=== PATIENT | female | born 2000 | race Caucasian/White ===

== ENCOUNTER 2024-11-22 15:19 | Emergency (ER) | payer SELFPAY ==
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
[2024-11-22 16:03] LABS: Sqamous Epithelial <5 /HPF (None Seen); Urine Culture Reflex Order REFLEXED; Urine Microscopic Reflex YN ORDER UMIC
--- NOTE | 2024-11-22 16:35 | RAD REPORT ---
EXAM: Transvaginal OB HISTORY: ABD PAIN COMPARISON: None TECHNIQUE: Multiple grayscale and color Doppler images were obtained in a transvaginal pelvic ultraso und. Spectral analysis of the Doppler waveforms of the ovaries were performed. FINDINGS: UTERUS: There is an intrauterine gestational sac. This contains a yolk sac and pole. [place]-rump length: 1.8 cm which estimates gestational age at 8 week 2 day. SABRINA: 07/02/2025. A heart rate is detected at 175 bpm. No evidence of subchorionic hemorrhage. No free fluid is seen in the pelvis. RIGHT OVARY: Normal flow without focal mass. LEFT OVARY: Not visualized, possibly obscured by bowel gas. IMPRESSION: Single live IUP with positive heart tones measuring 8 week 2 day.
[2024-11-22] MEDS ORDERED: ACETAMINOPHEN 325 MG TABLET ONE (16:50)
--- NOTE | 2024-11-22 17:16 | EDPHYS ---
Physician Documentation [facility] Name: Yani Grover Age: 24 yrs Sex: Female : 2000 Arrival Date: 11/22/2024 Time: 15:19 Bed 19 Private MD: ED Physician Javi Newsome HPI: 11/22 15:45 This 24 yrs old Female presents to ER via Ambulatory with complaints of Abdominal Pain, cp Abdominal Cramping, Vaginal Discomfort. 15:45 The patient presents with abdominal pain. cp 15:45 Associated signs and symptoms: Pertinent positives: positive and cp approximately 9 weeks . does not currently have an OB, Pertinent negatives: vaginal bleeding. 15:45 Patient reports she was diagnosed with uti about 3 weeks ago and took about 6 days of cp prescribed Keflex antibiotic. Historical: - Allergies: 15:37 No Known Allergies; hb - Immunization history:: Adult Immunizations up to date. - Infectious Disease History:: Denies. - Social history:: Smoking status: Patient denies any tobacco usage or history of. ROS: 15:50 Eyes: Negative for injury, pain, redness, and discharge, cp 15:50 Constitutional: Negative for body aches, chills, fever, 15:50 ENT: Negative for drainage from ear(s), ear pain, sore throat, difficulty swallowing, difficulty handling secretions, 15:50 Respiratory: Negative for cough, shortness of breath, wheezing, 15:50 Back: Negative for pain at rest, pain with movement, 15:50 : Positive for vaginal pain, Negative for urinary symptoms, vaginal bleeding, vaginal discharge, 15:50 All other systems are negative, 15:50 Abdomen/GI: Positive for abdominal pain, nausea, abdominal cramps, of the lower cp abdomen, Negative for vomiting, diarrhea, constipation, Exam: 15:55 Constitutional: The patient appears in no acute distress, alert, awake, comfortable, cp non-toxic, well developed, well nourished, 15:55 Head/Face: Normocephalic, atraumatic. cp 15:55 Eyes: Periorbital structures: appear normal, Conjunctiva: normal, no exudate, no injection, Sclera: no appreciated abnormality, Lids and lashes: appear normal, bilaterally, 15:55 ENT: External ear(s): are unremarkable, Nose: is normal, Mouth: Lips: moist, Oral mucosa: moist, Posterior pharynx: Airway: no evidence of obstruction, patent, 15:55 Chest/axilla: Inspection: normal, 15:55 Cardiovascular: Rate: normal, Rhythm: regular, 15:55 Respiratory: the patient does not display signs of respiratory distress, Respirations: normal, no use of accessory muscles, no retractions, labored breathing, is not present, Breath sounds: are clear throughout, no decreased breath sounds, no stridor, no wheezing, 15:55 Abdomen/GI: Inspection: abdomen appears normal, Bowel sounds: active, all quadrants, Palpation: soft, in all quadrants, mild abdominal tenderness, in the suprapubic area, right lower quadrant and left lower quadrant, rebound tenderness, is not appreciated, involuntary guarding, is not appreciated, 15:55 Back: CVA tenderness, is absent, Vital Signs: 15:34 BP 106 / 68; Pulse 89; Resp 16; Temp 98.5; Pulse Ox 100% on R/A; hb 16:45 BP 109 / 98; Pulse 80; Resp 18; Pulse Ox 100% ; Pain 2/10; rg5 16:45 Pain Scale: Adult rg5 MDM: 15:35 Medical Screening Exam initiated cp 16:00 Differential diagnosis: non-specific abd pain, Ovarian Torsion, Pelvic Inflammatory cp Disease, Pyelonephritis, Tubal Ovarian Abcess, Ureterolithiasis, urinary tract infection. 17:13 Data reviewed: vital signs, nurses notes, lab test result(s), urinalysis, radiologic cp studies, ultrasound. Refusal of service: The patient/guardian displays adequate decision making capability and despite a detailed discussion of alternatives, benefits, risks, and consequences refuses: blood draw. ED course: VSS. Discussed results of US that showed viable IUP and UA negative for infection at this time. 17:15 Counseling: I had a detailed discussion with the patient and/or guardian regarding the cp historical points, exam findings, and any diagnostic results supporting the discharge/admit diagnosis, the need for outpatient follow up, an OB/Gyne specialist, to return to the emergency department if symptoms worsen or persist or if there are any questions or concerns that arise at home. 11/22 15:41 Order name: Test, Urine; Complete Time: 16:29 cp 11/22 16:29 Interpretation: Reviewed. cp 11/22 15:50 Order name: UA Rfx Favian Cult if indicated; Complete Time: 16:29 11/22 16:29 Interpretation: Normal except: [facility] Extremely Turbid; UKET TRACE. 11/22 16:06 Order name: Urine Culture EDRI 11/22 15:41 Order name: US Transvaginal Ob; Complete Time: 16:36 11/22 16:36 Interpretation: Report reviewed. 11/22 15:41 Order name: NPO; Complete Time: 17:20 cp Administered Medications: 16:50 Drug: Acetaminophen PO 650 mg PO once Route: PO; rg5 18:12 Follow up: Response: No adverse reaction rg5 17:20 Not Given (Patient Refused): ondansetron 4 mg IVP once; over 2 minutes rg5 17:20 Not Given (Patient Refused): mg IVP once; dilute with 10 mL 0.9% NaCl; rg5 give over 2 minutes 17:20 Not Given (Patient Refused): ns 0.9% 1000 ml IV at 1000 ml once; to be given as a bolus rg5 over 60 minutes Disposition Summary: 11/22/24 17:15 Discharge Ordered Notes: Location: Home cp Problem: new cp Symptoms: have improved cp Condition: Stable cp Diagnosis - Other specified related conditions, first trimester cp - Abdominal pain, unspecified cp - Nausea cp Followup: cp - With: Private Physician - When: 1 week - Reason: Recheck today's complaints Discharge Instructions: - Discharge Summary Sheet cp - Abdominal Pain During cp - First Trimester of cp Forms: - Medication Reconciliation Form cp - Antibiotic Education cp - Prescription Opioid Use cp - Patient Portal Instructions cp - Leadership Thank You Letter cp Prescriptions: - Zofran 4 mg Oral Tablet - take 1 tablet ORAL route every 12 hours As needed; 20 tablet; Refills: 0, cp Product Selection Permitted Signatures: Dis[facility] Meek Urrutia PA-C PA-C cp Baxter, Heather, RN RN Jonny Saravia RN RN rg5 Corrections: (The following items were deleted from the chart) 17:20 15:41 IV Saline Lock ordered. cp rg5 17:20 15:41 Labs collected and sent ordered. cp rg5 11/23 14:37 11/22 15:45 Associated signs and symptoms: Pertinent positives: positive and cp approximately 9 weeks . does not currently have an OB, cp 11/23 14:40 11/22 15:40 Constitutional: Negative for body aches, chills, fever, cp cp 11/23 14:40 11/22 15:40 Abdomen/GI: Positive for abdominal pain, nausea, abdominal cramps, of the cp lower abdomen, Negative for vomiting, diarrhea, constipation, cp 11/23 14:40 11/22 15:40 Respiratory: Negative for cough, shortness of breath, wheezing, cp cp 11/23 14:40 09 15:40 Eyes: Negative for injury, pain, redness, and discharge, cp cp 11/23 14:40 11/22 15:40 ENT: Negative for drainage from ear(s), ear pain, sore throat, difficulty cp swallowing, difficulty handling secretions, cp 11/23 14:40 11/22 15:40 Back: Negative for pain at rest, pain with movement, cp cp 11/23 14:40 11/22 15:40 : Positive for vaginal pain, Negative for urinary symptoms, vaginal cp bleeding, vaginal discharge, cp 11/23 14:40 11/22 15:40 All other systems are negative, cp cp
--- NOTE | 2024-11-22 17:16 | ER ---
[facility] Name: Yani Grover Age: 24 yrs Sex: Female : 2000 Arrival Date: 11/22/2024 Time: 15:19 Bed 19 Private MD: Diagnosis: Other specified related conditions, first trimester;Abdominal pain, unspecified;Nausea Presentation: 11/22 15:34 Chief complaint: Dysuria, N/V, and lower abdominal pain since this morning. Diagnosed hb with UTI 3 weeks ago but did not take her ABX. Approx 9 weeks , LMP 09/25, SABRINA 07/01, . Coronavirus screen: At this time, the client does not indicate any symptoms associated with coronavirus-19. Ebola Screen: No symptoms or risks identified at this time. Initial Sepsis Screen: Does the patient meet any 2 criteria? No. Patient's initial sepsis screen is negative. Does the patient have a suspected source of infection? No. Patient's initial sepsis screen is negative. Risk Assessment: Do you want to hurt yourself or someone else? Patient reports no desire to harm self or others. Onset of symptoms was November 22, 2024. 15:34 Method Of Arrival: Ambulatory hb 15:34 Acuity: SUMANTH 3 hb Historical: - Allergies: 15:37 No Known Allergies; hb - Immunization history:: Adult Immunizations up to date. - Infectious Disease History:: Denies. - Social history:: Smoking status: Patient denies any tobacco usage or history of. Assessment: 17:00 General: Appears in no apparent distress. comfortable, Behavior is. rg5 17:00 Pain: Complains of pain in abdomen. rg5 Vital Signs: 15:34 BP 106 / 68; Pulse 89; Resp 16; Temp 98.5; Pulse Ox 100% on R/A; hb 16:45 BP 109 / 98; Pulse 80; Resp 18; Pulse Ox 100% ; Pain 2/10; rg5 16:45 Pain Scale: Adult rg5 ED Course: 15:25 Patient arrived in ED. cj3 15:29 Meek Urrutia PA-C is PHCP. cp 15:29 Javi Newsome MD is Attending Physician. cp 15:37 Triage completed. hb 15:37 Arm band placed on. hb 15:55 UA Rfx Favian Cult if indicated Sent. hb 15:55 Test, Urine Sent. hb 16:26 Jonny Mercado, RN is Primary Nurse. rg5 16:28 Transvaginal Ob In Process Unspecified. EDMS 17:00 Patient did not have IV access during this emergency room visit. rg5 Administered Medications: 16:50 Drug: Acetaminophen PO 650 mg PO once Route: PO; rg5 18:12 Follow up: Response: No adverse reaction rg5 17:20 Not Given (Patient Refused): ondansetron 4 mg IVP once; over 2 minutes rg5 17:20 Not Given (Patient Refused): [id number] mg IVP once; dilute with 10 mL 0.9% NaCl; rg5 give over 2 minutes 17:20 Not Given (Patient Refused): ns 0.9% 1000 ml IV at 1000 ml once; to be given as a bolus rg5 over 60 minutes Outcome: 17:00 Discharged to home ambulatory, rg5 17:00 Condition: stable 17:00 Discharge instructions given to patient, Instructed on discharge instructions, follow up and referral plans. Demonstrated understanding of instructions, follow-up care, Prescriptions given X 1, 17:15 Discharge ordered by MD. pompa 17:23 Patient left the ED. rg5 Signatures: Dispatcher [employer] [facility] Meek Urrutia PA-C PA-C cp Baxter, Heather, RN RN Jonny Mercado, RN RN rg5 Linda Brown cj3 Corrections: (The following items were deleted from the chart) 17:10 05:16 Acetaminophen PO 650 mg PO rg5 rg5
[2024-11-22 17:52] VITALS: TEMP 98.5; O2SAT 100
[2024-11-22 17:53] VITALS: BP 109/98
== END 2024-11-22 17:23 | disposition home or self-care (01) ==
LOC: ER 15:19
DX: O26.891 Other specified pregnancy related conditions, first trimester (principal); Z3A.09 9 weeks gestation of pregnancy
CPT/HCPCS: 76817; 81001; 81025; 87086; 87088; 99283

== ENCOUNTER 2024-12-04 14:04 | Emergency (ER) | payer SELFPAY ==
--- NOTE | 2024-12-04 14:44 | ER ---
Nurse's Notes [facility] Name: Yani Grover Age: 24 yrs Sex: Female : 2000 Arrival Date: 12/04/2024 Time: 14:04 Bed DX3 Private MD: Diagnosis: Vomiting of , unspecified Presentation: 12/04 14:36 Chief complaint: Patient states: nausea and lower stomach pain. reports 10 weeks dd2 . Coronavirus screen: At this time, the client does not indicate any symptoms associated with coronavirus-19. Ebola Screen: No symptoms or risks identified at this time. Risk Assessment: Do you want to hurt yourself or someone else? Patient reports no desire to harm self or others. Onset of symptoms was December 01, 2024. 14:36 Method Of Arrival: Ambulatory dd2 14:36 Acuity: SUMANTH 3 dd2 14:36 Initial Sepsis Screen: Does the patient meet any 2 criteria? No. Patient's initial dd2 sepsis screen is negative. Does the patient have a suspected source of infection? No. Patient's initial sepsis screen is negative. Triage Assessment: 14:41 General: Appears in no apparent distress. uncomfortable, Behavior is calm, cooperative, dd2 appropriate for age. Pain: Complains of pain in right lower quadrant and left lower quadrant. GI: Reports lower abdominal pain, cramping, nausea, vomiting. 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 - Infectious Disease History:: Denies. - Social history:: Smoking status: Patient denies any tobacco usage or history of. Screenin:30 Abuse screen: Denies threats or abuse. Denies injuries from another. Nutritional ss screening: No deficits noted. Tuberculosis screening: Never had TB. Assessment: 15:30 General: Appears in no apparent distress. comfortable. Pain: Denies pain. Neuro: Level ss of Consciousness is awake, alert, obeys commands, Oriented to person, place, time, situation. Respiratory: Airway is patent is compromised Respiratory effort is even, unlabored, Respiratory pattern is regular, symmetrical. GI: Reports nausea. Derm: Skin is intact, is healthy with good turgor, Skin is pink, warm \T\ dry. normal, Skin temperature is warm. Musculoskeletal: Range of motion: intact in all extremities. Vital Signs: 14:36 BP 124 / 78; Pulse 88; Resp 16; Temp 98.2; Pulse Ox 100% ; Weight 56.7 kg; Height 5 ft. dd2 2 in. ; Pain 6/10; 14:36 Body Mass Index 22.86 (56.70 kg, 157.48 cm) dd2 14:36 Pain Scale: Adult dd2 ED Course: 14:06 Patient arrived in ED. im 14:15 Ver[facility] Gilbert [facility]C [facility] kb 14:15 Javi Newsome MD is Attending Physician. kb 14:37 Triage completed. dd2 14:41 Arm band placed on right wrist. dd2 15:28 Stacey Gonzales, STERLING is Primary Nurse. ss 15:30 Patient has correct armband on for positive identification. Bed in low position. Call ss light in reach. 15:30 No provider procedures requiring assistance completed. Patient did not have IV access ss during this emergency room visit. Administered Medications: 15:28 Drug: Ondansetron Oral Disintegrating Tablet Oral Disintegrating Tablet 4 mg PO once ss Route: PO; 15:33 Follow up: Response: Medication Administered at Departure ss Medication: 15:30 VIS not applicable for this client. ss Outcome: 14:44 Discharge ordered by MD. kb 15:30 Discharged to home ambulatory, ss 15:30 Condition: good 15:30 Discharge instructions given to patient, family, Instructed on discharge instructions, follow up and referral plans. no driving heavy equipment, Demonstrated understanding of instructions, follow-up care, medications, Prescriptions given X 1, 15:32 Patient left the ED. ss Signatures: Veronika Gilbert FNP-C FNP-Stacey Escobar, STERLING RN Lilly Juarez AMY REESE RN RN dd2 Corrections: (The following items were deleted from the chart) 14:41 14:36 Pulse 88bpm; Resp 16bpm; Pulse Ox 100%; dd2 dd2
--- NOTE | 2024-12-04 14:44 | EDPHYS ---
Physician Documentation [facility] Name: Yani Grover Age: 24 yrs Sex: Female : 2000 Arrival Date: 12/04/2024 Time: 14:04 Bed DX3 Private MD: ED Physician Javi Newsome HPI: 12/04 14:41 This 24 yrs old Female presents to ER via Ambulatory with complaints of Nausea, kb Abdominal Pain, 10 Weeks . 14:41 Pt is a 24 year old female who presents for nausea that has been ongoing for 4 weeks. kb States she has intermittent lower abd pain. Reports she is 10 weeks , A0, LMP 09/25/24. States she called into work today because of the nausea and the PO zofran wasn't helping. States the dissolvable one normally helps, but she doesn't have that one. . 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 - Infectious Disease History:: Denies. - Social history:: Smoking status: Patient denies any tobacco usage or history of. ROS: 14:40 Constitutional: As per HPI kb Exam: 14:40 Constitutional: This is a well developed, well nourished patient who is awake, alert, kb and in no acute distress. Head/Face: Normocephalic, atraumatic. ENT: Moist Mucous membranes Cardiovascular: Regular rate Respiratory: Respirations even and unlabored. No increased work of breathing. Talking in full sentences Abdomen/GI: Soft, non-tender. No distention Skin: Warm, dry with normal turgor. Normal color. MS/ Extremity: Pulses equal, no cyanosis. Neurovascular intact. Full, normal range of motion. Neuro: Awake and alert, GCS 15, oriented to person, place, time, and situation. Vital Signs: 14:36 BP 124 / 78; Pulse 88; Resp 16; Temp 98.2; Pulse Ox 100% ; Weight 56.7 kg; Height 5 ft. dd2 2 in. ; Pain 6/10; 14:36 Body Mass Index 22.86 (56.70 kg, 157.48 cm) dd2 14:36 Pain Scale: Adult dd2 MDM: 14:17 Medical Screening Exam initiated kb 14:42 Differential diagnosis: dehydration, abnormal electrolytes, morning sickness. Data kb reviewed: vital signs, nurses notes. Test considered but Not performed: Labs: cbc, cmp considered but pt is tolerating po intake at this time and doesn't think it is necessary. Ultrasound US considered but pt had one 2 weeks ago and said everything was fine. US results reviewed: single IUP with heart tones . Counseling: I had a detailed discussion with the patient and/or guardian regarding the historical points, exam findings, and any diagnostic results supporting the discharge/admit diagnosis, the need for outpatient follow up, an OB/Gyne specialist, to return to the emergency department if symptoms worsen or persist or if there are any questions or concerns that arise at home. Administered Medications: 15:28 Drug: Ondansetron Oral Disintegrating Tablet Oral Disintegrating Tablet 4 mg PO once ss Route: PO; 15:33 Follow up: Response: Medication Administered at Departure ss Disposition Summary: 12/04/24 14:44 Discharge Ordered Notes: Location: Home kb Condition: Stable kb Diagnosis - Vomiting of , unspecified kb Followup: kb - With: Emergency Department - When: As needed - Reason: Worsening of condition Followup: kb - With: Private Physician - When: 2 - 3 days - Reason: Recheck today's complaints, Continuance of care, Re-evaluation by your physician Discharge Instructions: - Discharge Summary Sheet kb - Morning Sickness, [id number] kb Forms: - Medication Reconciliation Form kb - Antibiotic Education kb - Prescription Opioid Use kb - Patient Portal Instructions kb - Leadership Thank You Letter kb - Work release form bc6 Prescriptions: - ondansetron 4 mg Oral Tablet,disintegrating - take 1 tablet ORAL route every 6 hours as needed for nausea and vomiting; 12 kb tablet; Refills: 0, Product Selection Permitted Signatures: Veronika Gilbert FNP-C FNP-Stacey Escobar RN RN ss AMY REESE RN RN dd2
[2024-12-04] MEDS ORDERED: ONDANSETRON 4 MG (ODT) TAB ONE (15:15)
[2024-12-04 15:58] VITALS: BP 124/78; TEMP 98.2; O2SAT 100
== END 2024-12-04 15:32 | disposition home or self-care (01) ==
LOC: ER 14:04
DX: O21.9 Vomiting of pregnancy, unspecified (principal); Z3A.10 10 weeks gestation of pregnancy
CPT/HCPCS: 99283; Q0162